=== PATIENT | female | born 1985 | race American Indian/Alaskan Native ===

== ENCOUNTER 2017-05-16 23:00 | Emergency (ER) | payer OTHER ==
[2017-05-17 00:06] VITALS: BP 130/92
--- NOTE | 2017-05-17 00:37 | XRay Report ---
FINAL REPORT EXAM: XR HAND 2V RT HISTORY: Right hand crush injury with laceration TECHNIQUE: Frontal and lateral views of right hand. PRIORS: None. FINDINGS: Joint spaces maintained. No apparent fracture or dislocation. Bandaging artifact and soft tissue edema noted about the little finger. IMPRESSION: 1. No acute osseous abnormality. 2. Soft tissue edema.
== END 2017-05-17 01:35 | disposition left against medical advice (07) ==
LOC: ED 23:00
DX: S61.214A Laceration without foreign body of right ring finger without damage to nail, initial encounter (principal); S61.216A Laceration without foreign body of right little finger without damage to nail, initial encounter; Z53.21 Procedure and treatment not carried out due to patient leaving prior to being seen by health care provider; Y08.89XA Assault by other specified means, initial encounter; Y93.89 Activity, other specified; Y92.89 Other specified places as the place of occurrence of the external cause; Y99.8 Other external cause status

== ENCOUNTER 2017-05-17 11:49 | Emergency (ER) | payer OTHER ==
[2017-05-17 12:16] VITALS: BP 122/91
[2017-05-17] MEDS ORDERED: XYLOCAINE 1% MPF 5 mL ONE (12:49)
[2017-05-17] MEDS ORDERED: HYDROGEN PEROXIDE ONE (12:49)
--- NOTE | 2017-05-17 13:23 | Emergency Department Report ---
ED Laceration HPI - HPI Chief Complaint: Wound/Laceration Stated Complaint: RIGHT HAND LACERATION Time Seen by Provider: 05/17/17 12:40 Occurred When: Yesterday Location: Upper Extremity Severity: moderate Tetanus Status: Up to Date Laceration Symptoms: Yes Pain, No Foreign Body Sensation, No Numbness, No Weakness ED Review of Systems ROS: Stated complaint: RIGHT HAND LACERATION Other details as noted in HPI Comment: Unobtainable due to pts medical conditions Constitutional: no symptoms reported, see HPI. denies: chills Eyes: as per HPI. denies: eye pain ENT: as per HPI. denies: ear pain, throat pain Respiratory: no symptoms reported, see HPI. denies: cough, orthopnea Cardiovascular: as per HPI. denies: chest pain, palpitations, dyspnea on exertion, orthopnea Endocrine: no symptoms reported, see HPI. denies: excessive sweating, flushing , intolerance to cold, intolerance to heat Gastrointestinal: as per HPI. denies: abdominal pain, nausea, vomiting Genitourinary: as per HPI. denies: urgency, dysuria Musculoskeletal: as per HPI. denies: back pain Skin: as per HPI, other (LAC R HAND BET 4/5 DIGIT). denies: rash, lesions Neurological: as per HPI. denies: headache, weakness Psychiatric: as per HPI. denies: anxiety, depression Hematological/Lymphatic: as per HPI ED Past Medical Hx - Past Medical History Hx Hypertension: Yes (chronic) Hx Congestive Heart Failure: No Hx Diabetes: No Hx Deep Vein Thrombosis: No Hx Renal Disease: No Hx Sickle Cell Disease: No Hx Seizures: No Hx Asthma: No Hx COPD: No Hx HIV: No - Surgical History Past Surgical History?: No - Social History Smoking Status: Current Every Day Smoker Substance Use Type: Alcohol - Medications Home Medications: Home Medications Medication Instructions Recorded Confirmed Last Taken Type Cephalexin [Keflex] 500 mg PO Q12HR #20 cap 05/17/17 Unknown Rx traMADol [Ultram] 50 mg PO Q6HR PRN #10 tablet 05/17/17 Unknown Rx Laceration Physical Exam - Exam General: Vital signs noted. No distress. Alert and acting appropriately. Wound Length (cm): 4 Laceration Location: Upper Extremity Laceration Exam: Yes Normal Distal CMS, No Foreign Body, No Exposed Tendon, Vessel, or Nerve, No Tendon Injury ED Course Vital Signs 05/17/17 12:13 Temperature 98.9 F Pulse Rate 90 Respiratory 16 Rate Blood Pressure 122/91 O2 Sat by Pulse 100 Oximetry - Reevaluation(s) Reevaluation #1: 05/17/17 TO ER W OVER 12 H OLD WOUND HERE LAST PM BUT BUSY SO LEFT SEE WOUND REPAIR NOTE ETOH EXPLAINED TO PT THAT SHE SHOULD NOT DRINK BC OF BLEEDING. FAMILY W HER AND ACKNOWLEDGED DC HOME W DC POC AND ANBX. - Laceration /Wound Repair R HAND Wound Location: upper extremity Wound Length (cm): 4 Wound's Depth, Shape: irregular, contused tissue Wound Explored: no foreign body removed Irrigated w/ Saline (ccs): 50 Betadine Prep?: Yes Anesthesia: 1% Lidocaine Volume Anesthetic (ccs): 3 Wound Debrided: minimal Wound Repaired With: sutures, Steri-strips, Dermabond Suture Size/Type: 3:0 Number of Sutures: 6 Layer Closure?: No Sterile Dressing Applied?: Yes Progress: LAC CLEANED TDAP UTD WOUND REPAIRED PT TOLERATED WELL DRESSING APPLIED N/V INTACT W FULL FLEX/EXTENSION AND ULNAR RAD INTACT ED Medical Decision Making - Medical Decision Making SEE NOTE - Differential Diagnosis LAC Critical care attestation.: If time is entered above; I have spent that time in minutes in the direct care of this critically ill patient, excluding procedure time. ED Disposition Clinical Impression: Laceration Disposition: DC-01 TO HOME OR SELFCARE Is pt being admited?: No Does the pt Need Aspirin: No Condition: Stable Instructions: Suture Care (ED), Laceration (ED), Soft Tissue Foreign Body (ED) , Finger Laceration (ED) Additional Instructions: KEEP CLEAN AND DRY BULKY DRESSING TO KEEP IMMOBILIZED RETURN APPROX 5-7 DAYS TO HAVE SUTURES REMOVED MED UNTIL GONE NO ALCOHOL ICE TODAY ELEVATED TODAY Prescriptions: Cephalexin [Keflex] 500 mg PO Q12HR #20 cap traMADol [Ultram] 50 mg PO Q6HR PRN #10 tablet PRN Reason: Pain Referrals: CED DEMPSEY MD [Staff Physician] - 3-5 Days Time of Disposition: 13:20
== END 2017-05-17 13:32 | disposition home or self-care (01) ==
LOC: ED 11:49
DX: S61.411A Laceration without foreign body of right hand, initial encounter (principal); I10 Essential (primary) hypertension; F17.200 Nicotine dependence, unspecified, uncomplicated; Z88.0 Allergy status to penicillin; W45.8XXA Other foreign body or object entering through skin, initial encounter; Y93.89 Activity, other specified; Y92.89 Other specified places as the place of occurrence of the external cause; Y99.8 Other external cause status

== ENCOUNTER 2017-05-24 11:37 | Emergency (ER) | payer OTHER ==
[2017-05-24 11:58] VITALS: BP 143/104
== END 2017-05-24 18:35 | disposition left against medical advice (07) ==
LOC: ED 11:37
DX: Z53.21 Procedure and treatment not carried out due to patient leaving prior to being seen by health care provider (principal)